=== PATIENT | female | born 1945 | race Caucasian/White ===

== ENCOUNTER → 2016-06-06 | Outpatient (CLI) | payer BC ==
[~2016-06-06] MED LIST: ASPCH81X PO; CALC-354 PO; CHOL100027 PO; CLTP PO; DOXY-300 PO; ESTR0.3T PO; FISHOIL PO; MULT-428 PO; MULT-506 PO; OMEG10007 PO
--- NOTE | 2016-06-27 10:59 | CODING QUERY MEDICAL NECESSITY ---
SUPPORTING DIAGNOSIS NEEDED A supporting diagnosis is required for the test/procedure performed on this patient in order for us to be reimbursed by the patient's insurance. Please provide a supporting diagnosis for the following test/procedure listed below next to the test name along with your signature. *If there is no additional diagnosis for this patient that would support the following test/procedure please document that below next to the test/procedure. Test(s)/Procedure(s) that require a supporting diagnosis: * BONE DENSITY STUDY DIAGNOSIS: * DOS: 06/06/16 Provider Signature: Date: Thank you Raquel Layton Health Information Management Once completed, please kindly fax back to [phone] For questions please call [phone]
== END | disposition home or self-care (01) ==
LOC: C.MAMM 14:44
PROVIDERS: ATTEND Family Medicine
DX: Z00.00 Encounter for general adult medical examination without abnormal findings (principal); M85.852 Other specified disorders of bone density and structure, left thigh

== ENCOUNTER 2016-10-12 10:59 | Emergency (ER) | payer BC ==
[~2016-10-12] VITALS: Ht 157.5 cm; Wt 63.2 kg
[~2016-10-12 10:59] MED LIST changes: -CALC-354 PO; -DOXY-300 PO; -MULT-428 PO; -OMEG10007 PO
[2016-10-12 11:10] VITALS: Ht 157.5 cm; Wt 63.2 kg
[2016-10-12] MEDS ORDERED: CALC-354 PO (11:35)
[2016-10-12] MEDS ORDERED: MULT-428 PO (11:35)
[2016-10-12] MEDS ORDERED: OMEG10007 PO (11:35)
--- NOTE | 2016-10-12 11:40 | EMERGENCY ROOM VISIT NOTE ---
ED Visit Note First contact with patient: 11:19 This Patient was discussed with the physician [facility] Director, Filemon Rucker PA-C. The pertinent historical and physical exam findings were confirmed. I agree with the studies ordered and with the interpretations of these studies. I agree with the disposition and care plan.
[2016-10-12] MEDS ORDERED: DOXY-300 PO (11:43)
--- NOTE | 2016-10-12 11:45 | EMERGENCY ROOM VISIT NOTE ---
History First contact with patient: 11:19 Chief Complaint: BITE Stated Complaint: TICK BITE History of Present Illness The patient is a 71 year old female who presents to the Emergency Room via private vehicle with complaints of "tick bite". The patient states that she woke up today and noticed a tick bite in the side of her body, on the skin overlying the right ASIS region. She notes she has had this before, but this time she notes a red rash around the tick. She is unsure of the total duration the tick has been in her side. She has had Lyme disease in the past. She denies any trouble breathing, but does note that her lip is starting to swell on the bottom left. She denies any other rashes or joint pain. Her tetanus is up-to-date. Review of Systems A complete 6-point Review of Systems was discussed with the patient, with pertinent positives and negatives listed in the History of Present Illness. All remaining Review of Systems questions can be considered negative unless otherwise specified. Past Medical/Surgical History Skin problems, bronchitis, appendectomy, tubal ligation, hysterectomy, tonsillectomy Family History Diabetes, heart disease, cancer Social History Smoking Status: Never Smoker Social History: Patient lives at home with self and dog. Current/Historical Medications Scheduled Calcium Carbonate-Cholecalcife (Caltrate 600+D), 1 TAB PO DAILY Cholecalciferol (Vitamin D 1000 Unit), 2,000 INTER.UNIT PO DAILY Doxycycline (Monohydrate) (Doxycycline), 100 MG PO BID Estrogens, Conjugated (Premarin), 0.3 MG PO HS Fish Oil (Eckerty-3), 1 CAP PO DAILY Multiple Vitamins W/ Minerals (Macuvite), 1 TAB PO DAILY Allergies Coded Allergies: Naproxen (Verified Allergy, Mild, RASH, 10/12/16) Statins (Verified Adverse Reaction, Intermediate, NAUSEA, 10/12/16) Sulfa Antibiotics (Verified Adverse Reaction, Unknown, HALLUCINATIONS, ) Physical Exam Vital Signs Date Time Temp Pulse Resp B/P Pulse Ox O2 Delivery O2 Flow Rate FiO2 10/12/16 11:55 36.7 68 18 110/68 98 10/12/16 11:10 36.7 86 18 104/68 97 Room Air Physical Exam VITAL SIGNS - Vital signs and nursing notes were reviewed. Patient is afebrile , normotensive, non-tachycardic and is saturating well on room air 97 percent. GENERAL -71-year-old female appearing her stated age who is in no acute distress. Communicates well with provider and answers questions appropriately. SKIN - there is a large 5 cm x 10 cm erythematous rash encircling a small deer tick that is not engorged. Medical Decision & Procedures Medical Decision Patient was seen and evaluated as above. She has a tick in her right superior thigh/right inferior quadrant that is not engorged. There is a surrounding area of erythema which is concerning for Lyme disease. Patient has had Lyme disease in the past. It appears that she also is experiencing angioedema of the left inferior lip. No evidence of anaphylaxis. She is recommended take Benadryl for the lip swelling. In regard to the rash, I do believe the treatment for Lyme disease is appropriate. She'll be placed upon doxycycline 100 mg twice a day for 21 days. The patient is to follow-up with her family doctor in 7-10 days for Lyme disease testing. She was educated upon management today's findings. She was also personally evaluated by my attending. He agreed with treatment plan. The tick was removed without difficulty. No other sign of infection. Patient was educated upon worrisome symptoms which to return , had questions prior to discharge, and was discharged home in good condition. In the evaluation and treatment of this patient the following differential diagnoses were entertained: cellulitis, Lyme disease, erythema migrans, among others. Impression Primary Impression: Tick bite Additional Impressions: Lyme disease, acute Angioedema of lips Departure Information Dispostion Home / Self-Care Condition GOOD Prescriptions Doxycycline (Monohydrate) (Doxycycline) 100 Mg Cap 100 MG PO BID for 21 Days, #42 TABS Prov: Filemon Rucker PA-C 10/12/16 Referrals Mik Del Rio M.D. (PCP) Patient Instructions My [facility] Additional Instructions You were seen in the emergency Department for a tick bite. Due to the size of the rash, at this time we will diagnose you with Lyme disease. You have been prescribed Doxycycline to be taken as prescribed. This is an antibiotic. All antibiotics have the potential to cause diarrhea. Stop this medication and contact a medical provider if you were to develop any significant adverse side effects including: wheezing, shortness of breath, passing out, vomiting, or a diffuse rash. Always take antibiotics as directed and COMPLETE the ENTIRE course regardless of the improvement of your symptoms. Protect yourself with sunscreen while on this antibiotic as it increases your skin's sensitivity to the light and cause bad sunburns. In addition, you should be sure to take this pill after eating. Make sure the pill is completely swallowed as this medication can cause irritation to the lining of the esophagus. Do NOT drink milk or eat anything with large amounts of Calcium in them 1 hour prior to taking this medication as this will decrease the effectiveness of the medication. Please follow-up with Dr. Del Rio, by calling his office later today to schedule an appointment in the next 1-1.5 weeks for Lyme disease testing. This is to identify your status. Please watch for signs of infection such as redness, swelling or drainage from the wound. These would develop please return immediately. Please watch for signs of furthering Lyme disease to include joint pain, increased rash, fevers, chills or any new/concerning symptoms. For the swelling of your lips, please begin [id number] Benadryl as instructed on the bottle. This can make you drowsy. Please return to the emergency department with any new/concerning symptoms. Problem Qualifiers
[2016-10-12 11:55] VITALS: BP 110/68; PULSE 68; TEMP 36.7; O2SAT 98
== END 2016-10-12 11:56 | disposition home or self-care (01) ==
LOC: C.EDB 11:00 → C.EDD 11:56
DX: S70.361A Insect bite (nonvenomous), right thigh, initial encounter (principal); W57.XXXA Bitten or stung by nonvenomous insect and other nonvenomous arthropods, initial encounter; A69.20 Lyme disease, unspecified; T78.3XXA Angioneurotic edema, initial encounter; X58.XXXA Exposure to other specified factors, initial encounter; Z98.51 Tubal ligation status; Z90.710 Acquired absence of both cervix and uterus; Z83.3 Family history of diabetes mellitus; Z80.9 Family history of malignant neoplasm, unspecified; Z79.899 Other long term (current) drug therapy